=== PATIENT | male | born 1980 | race Caucasian/White ===

== ENCOUNTER → 2017-01-10 | Outpatient (CLI) | payer BC | LOC: RAD 09:58 | DX: M53.3 Sacrococcygeal disorders, not elsewhere classified (principal) ==

== ENCOUNTER 2017-01-14 14:06 | Outpatient (RCR) | payer BC | END 2017-02-18 13:39 | disposition home or self-care (01) | LOC: PT 14:06 | DX: M53.3 Sacrococcygeal disorders, not elsewhere classified (principal) ==

== ENCOUNTER → 2019-05-26 | Outpatient (CLI) | payer OTHER ==
[2019-05-26 17:17] LABS: HEMOGLOBIN 17.6 g/dL (13.5-18.0); MEAN PLATELET VOLUME 11.6 fl (7.4-10.4); RED BLOOD COUNT 5.89 M/mm3 (4.20-5.60); RED CELL DISTRIBUTION WIDTH 12.7 % (11.5-14.5); WHITE BLOOD COUNT 8.2 K/mm3 (4.8-10.8)
[2019-05-26 17:26] LABS: ALBUMIN 4.7 g/dL (3.5-5.0); PH-URINE 5.5 (5.0 - 8.0); URINE APPEARANCE CLEAR; URINE BILIRUBIN NEGATIVE (NEGATIVE); URINE BLOOD TRACE (NEGATIVE); URINE COLOR YELLOW; URINE GLUCOSE NEGATIVE (NEGATIVE); URINE KETONE NEGATIVE (NEGATIVE); URINE LEUKOCYTE ESTERASE NEGATIVE (NEGATIVE); URINE NITRATE NEGATIVE (NEGATIVE); URINE PROTEIN(semi-quant) NEGATIVE (NEGATIVE); URINE UROBILINOGEN NORMAL (NORMAL)
[2019-05-26 17:27] LABS: POTASSIUM 3.4 mmol/L (3.5-5.1); URINE MUCUS PRESENT (NOT PRESENT)
[2019-05-26 17:28] LABS: CALCIUM 9.5 mg/dL (8.3-10.5)
[2019-05-26 17:29] LABS: TOTAL PROTEIN 7.4 g/dL (6.4-8.3)
[2019-05-26 17:31] LABS: TOTAL BILIRUBIN 1.3 mg/dL (0.2-1.2)
[2019-05-27 15:20] LABS: DIRECT BILIRUBIN 0.4 mg/dL (0.0-0.5)
== END ==
LOC: LAB 16:56
PROVIDERS: Family Medicine
DX: I10 Essential (primary) hypertension (principal); R53.83 Other fatigue; R06.00 Dyspnea, unspecified

== ENCOUNTER → 2019-06-22 | Outpatient (CLI) | payer OTHER | LOC: CARDREHAB 09:07 → CARDLAB 13:16 | DX: I10 Essential (primary) hypertension (principal); G47.34 Idiopathic sleep related nonobstructive alveolar hypoventilation ==

== ENCOUNTER → 2019-08-16 | Outpatient (CLI) | payer OTHER ==
[2019-08-16 10:28] LABS: POTASSIUM 3.9 mmol/L (3.5-5.1)
[2019-08-16 10:29] LABS: CALCIUM 9.1 mg/dL (8.3-10.5)
== END ==
LOC: LAB 10:07
PROVIDERS: Family Medicine
DX: I10 Essential (primary) hypertension (principal)

== ENCOUNTER → 2020-03-24 | Outpatient (CLI) | payer OTHER | LOC: AMSURD 15:36 | DX: I10 Essential (primary) hypertension (principal) ==

== ENCOUNTER → 2021-01-11 | Outpatient (CLI) | payer BC ==
[2021-01-11 11:37] LABS: ALBUMIN 4.3 g/dL (3.5-5.0); POTASSIUM 3.8 mmol/L (3.5-5.1)
[2021-01-11 11:40] LABS: TOTAL PROTEIN 6.8 g/dL (6.4-8.3)
== END ==
LOC: LAB 11:11
PROVIDERS: Family Medicine
DX: Z13.220 Encounter for screening for lipoid disorders (principal); R74.01 Elevation of levels of liver transaminase levels

== ENCOUNTER → 2021-12-29 | Outpatient (CLI) | payer BC ==
[2021-12-29 09:13] LABS: ALBUMIN 4.2 g/dL (3.5-5.0); POTASSIUM 3.8 mmol/L (3.5-5.1)
[2021-12-29 09:16] LABS: TOTAL PROTEIN 6.5 g/dL (6.4-8.3)
[2021-12-29 09:17] LABS: TOTAL BILIRUBIN 1.4 mg/dL (0.2-1.2)
== END ==
LOC: LAB 08:51
PROVIDERS: Family Medicine
DX: I10 Essential (primary) hypertension (principal); E66.9 Obesity, unspecified; R73.9 Hyperglycemia, unspecified

== ENCOUNTER → 2022-04-22 | Outpatient (CLI) | payer BC ==
[2022-04-22 11:14] LABS: HEMATOCRIT 48.8 % (42.0-52.0); HEMOGLOBIN 16.7 g/dL (13.5-18.0); MEAN PLATELET VOLUME 11.1 fl (7.4-10.4); RED BLOOD COUNT 5.47 M/mm3 (4.20-5.60); RED CELL DISTRIBUTION WIDTH 12.1 % (11.5-14.5); WHITE BLOOD COUNT 5.5 K/mm3 (4.8-10.8)
[2022-04-22 11:18] LABS: ALBUMIN 4.1 g/dL (3.5-5.0); POTASSIUM 3.4 mmol/L (3.5-5.1); SODIUM 140 mmol/L (136-145)
[2022-04-22 11:20] LABS: CALCIUM 8.7 mg/dL (8.3-10.5)
[2022-04-22 11:21] LABS: GLUCOSE 117 mg/dL (75-110); TOTAL PROTEIN 6.4 g/dL (6.4-8.3)
[2022-04-22 11:22] LABS: CARBON DIOXIDE 28 mmol/L (22-29)
[2022-04-22 11:23] LABS: TOTAL BILIRUBIN 0.7 mg/dL (0.2-1.2)
[2022-04-22 11:26] LABS: AST-SGOT 49 U/L (5-34)
[2022-04-22 11:27] LABS: ALT/SGPT 100 U/L (0-55)
[2022-04-22 11:32] LABS: TROPONIN-I < 0.030 ng/mL (<0.030)
== END ==
LOC: AMSURD 10:40
PROVIDERS: Nurse Practitioner
DX: R20.0 Anesthesia of skin (principal)

== ENCOUNTER → 2022-04-23 | Outpatient (CLI) | payer BC | LOC: RAD 08:00 | DX: R94.5 Abnormal results of liver function studies (principal) ==

== ENCOUNTER → 2022-04-24 | Outpatient (CLI) | payer BC | LOC: RAD 14:52 | DX: M54.2 Cervicalgia (principal) ==

== ENCOUNTER → 2024-01-09 | Outpatient (CLI) | payer BC | LOC: LAB 16:30 | DX: M51.36 Other intervertebral disc degeneration, lumbar region (principal) ==

== ENCOUNTER → 2024-03-26 | Outpatient (CLI) | payer BC | LOC: RAD 12:08 | DX: M25.512 Pain in left shoulder (principal); W19.XXXA Unspecified fall, initial encounter ==